=== PATIENT | male | born 1960 | race Caucasian/White ===

== ENCOUNTER 2019-07-26 08:15 | Emergency (ER) | payer MEDICARE ==
[~2019-07-26] VITALS: Ht 187.9 cm; Wt 73.5 kg
[~2019-07-26 08:15] MED LIST: ATARAX,VISTARIL50 MG PO; BENADRYL25 M1 PO; DAYPRO600 M1 PO; PEPCID20 MG PO; PREDNICOT20 MG PO; ROBAXIN750 MG PO; VICODIN 500 MG-1 TAB PO
== END 2019-07-26 09:24 | disposition home or self-care (01) ==
LOC: ED 08:15
DX: S92.354A Nondisplaced fracture of fifth metatarsal bone, right foot, initial encounter for closed fracture (principal); F17.200 Nicotine dependence, unspecified, uncomplicated; Z79.899 Other long term (current) drug therapy; X50.1XXA Overexertion from prolonged static or awkward postures, initial encounter; Y93.89 Activity, other specified; Y92.098 Other place in other non-institutional residence as the place of occurrence of the external cause; Y99.8 Other external cause status

== ENCOUNTER 2022-05-13 09:49 | Emergency (ER) | payer MEDICARE ==
[~2022-05-13] VITALS: Ht 187.9 cm; Wt 68.0 kg
[2022-05-13] MEDS ORDERED: TYLENOL325 M1 PO (10:34)
[2022-05-13] MEDS ORDERED: NAPROXEN250 MG PO (10:34)
== END 2022-05-13 10:42 | disposition home or self-care (01) ==
LOC: ED 09:49
DX: S62.91XA Unspecified fracture of right hand, initial encounter for closed fracture (principal); F17.200 Nicotine dependence, unspecified, uncomplicated; Z79.899 Other long term (current) drug therapy; Z98.890 Other specified postprocedural states; W17.89XA Other fall from one level to another, initial encounter; Y93.89 Activity, other specified; Y92.89 Other specified places as the place of occurrence of the external cause; Y99.8 Other external cause status

== ENCOUNTER → 2022-05-27 | Outpatient (CLI) | payer MEDICARE ==
[~2022-05-27] MED LIST changes: +NAPROXEN250 MG PO; +TYLENOL325 M1 PO
== END | disposition home or self-care (01) ==
LOC: ORTHO 00:37
PROVIDERS: ATTEND Orthopaedic Surgery
DX: S62.346D Nondisplaced fracture of base of fifth metacarpal bone, right hand, subsequent encounter for fracture with routine healing (principal); X58.XXXD Exposure to other specified factors, subsequent encounter

== ENCOUNTER 2023-11-30 16:29 | Emergency (ER) | payer MEDICARE ==
[~2023-11-30] VITALS: Ht 187.9 cm; Wt 69.4 kg
[2023-11-30] MEDS ORDERED: SODIUM CHLORIDE 0.9% 1,000 ML IV ONE (16:55)
[2023-11-30] MEDS ORDERED: Thiamine 200 MG/2 ML VIAL IV ONE (16:55)
[2023-11-30 17:09] LABS: BASO # 0.1 10*3/uL (0.0-0.1); EOS # 0.1 10*3/uL (0.0-0.4); EOS % 1.7 % (1.0-4.0); HEMATOCRIT 40.2 % (42.0-52.0); LYMPH # 1.8 10*3/uL (1.3-4.4); LYMPH % 22.7 % (27.0-41.0); MEAN CELL VOLUME 99.5 fl (80.0-94.0); MEAN CORPUSCULAR HGB 33.2 pg (27.0-31.0); MEAN CORPUSCULAR HGB CONC 33.3 g/dl (33.0-37.0); MEAN PLATELET VOLUME 10.1 fl (9.6-12.3); MONO # 0.6 10*3/uL (0.1-1.0); MONO % 7.8 % (3.0-9.0); NEUT # 5.1 10*3/uL (2.3-7.9); NEUT % 66.3 % (47.0-73.0); PLATELET COUNT AUTOMATED 171 10*3/uL (130-400); RED BLOOD COUNT 4.04 10*6/uL (4.50-5.90); RED CELL DISTRI WIDTH 14.5 % (0-14.5); WHITE BLOOD COUNT 7.7 10*3/uL (4.8-10.8)
[2023-11-30 17:20] LABS: ACT PARTIAL THROMBO TIME 36.3 SECONDS (20.0-32.1)
[2023-11-30 17:32] LABS: POTASSIUM 3.7 mmol/L (3.4-5.1); TOTAL PROTEIN 6.7 gm/dL (6.0-8.0)
[2023-11-30 17:58] LABS: BILIRUBIN 3+ (Negative); BLOOD Negative (Negative); CLARITY Cloudy (Clear); COLOR Orange (Yellow); GLUCOSE Trace (Negative); KETONE Negative (Negative); LEUKO ESTERASE 1+ (Negative); NITRITE Positive (Negative); PH 5.5 (4.5-8.0); SPECIFIC GRAVITY 1.025 (1.001-1.030)
[2023-11-30] MEDS ORDERED: Ceftriaxone Sodium 1 GM/10 ML SYR IV ONE (18:15)
== END 2023-11-30 23:10 | disposition short-term general hospital (02) ==
LOC: ED 16:29
PROVIDERS: Nurse Practitioner Family
DX: K80.50 Calculus of bile duct without cholangitis or cholecystitis without obstruction (principal); N39.0 Urinary tract infection, site not specified; E80.6 Other disorders of bilirubin metabolism; R74.01 Elevation of levels of liver transaminase levels; Z98.890 Other specified postprocedural states

== ENCOUNTER → 2023-12-11 | Outpatient (CLI) | payer MEDICARE ==
[2023-12-11 11:40] LABS: HEMATOCRIT 34.4 % (42.0-52.0); MEAN CELL VOLUME 102.1 fl (80.0-94.0); MEAN CORPUSCULAR HGB 32.6 pg (27.0-31.0); RED BLOOD COUNT 3.37 10*6/uL (4.50-5.90); RED CELL DISTRI WIDTH 13.4 % (0-14.5); WHITE BLOOD COUNT 8.1 10*3/uL (4.8-10.8)
[2023-12-11 12:11] LABS: ALKALINE PHOSPHATASE 235 U/L (46-116); BUN 13 mg/dl (9-23); CHLORIDE 103 mmol/L (98-107); CHOLESTEROL 188 mg/dL (<200); LDL CHOLESTEROL 128 mg/dL (9-159); LIPASE 89 U/L (12-53); POTASSIUM 3.7 mmol/L (3.4-5.1); SGPT/ALT 33 U/L (5-49); TOTAL PROTEIN 6.8 gm/dL (6.0-8.0); TRIGLYCERIDES 85 mg/dl (<150)
[2023-12-12 05:06] LABS: HBSAG Negative (Negative); HEP B CORE AB, IGM Negative (Negative); HEPATITIS C ANTIBODY Non Reactive (Non Reactive)
== END | disposition home or self-care (01) ==
LOC: LAB 11:14
PROVIDERS: ATTEND Family Medicine
DX: E78.00 Pure hypercholesterolemia, unspecified (principal)

== ENCOUNTER → 2024-04-28 | Outpatient (CLI) | payer MEDICARE ==
[2024-04-28 08:28] LABS: HEMATOCRIT 35.1 % (42.0-52.0); MEAN CELL VOLUME 99.7 fl (80.0-94.0); MEAN CORPUSCULAR HGB 32.7 pg (27.0-31.0); MEAN CORPUSCULAR HGB CONC 32.8 g/dl (33.0-37.0); MEAN PLATELET VOLUME 9.7 fl (9.6-12.3); RED BLOOD COUNT 3.52 10*6/uL (4.50-5.90); RED CELL DISTRI WIDTH 16.8 % (0-14.5); WHITE BLOOD COUNT 7.5 10*3/uL (4.8-10.8)
[2024-04-28 09:03] LABS: ALKALINE PHOSPHATASE 481 U/L (46-116); BUN 7 mg/dl (9-23); CHLORIDE 102 mmol/L (98-107); POTASSIUM 4.6 mmol/L (3.4-5.1); SGPT/ALT 57 U/L (5-49); TOTAL PROTEIN 6.4 gm/dL (6.0-8.0)
== END | disposition home or self-care (01) ==
LOC: LAB 07:51
PROVIDERS: ATTEND Family Medicine
DX: I10 Essential (primary) hypertension (principal); C25.9 Malignant neoplasm of pancreas, unspecified; D64.9 Anemia, unspecified; N40.0 Benign prostatic hyperplasia without lower urinary tract symptoms

== ENCOUNTER 2024-09-14 22:53 | Emergency (ER) | payer MEDICARE ==
[~2024-09-14] VITALS: Ht 187.9 cm; Wt 67.1 kg
[2024-09-14] MEDS ORDERED: Sulfamethoxazole/Trimethopri 1 TAB TAB PO ONE (23:10)
[2024-09-14] MEDS ORDERED: Ondansetron Hydrochloride 4 MG TAB SL ONE (23:10)
[2024-09-14] MEDS ORDERED: Acetaminophen/Hydrocodone 5 MG/325 MG TABLET PO ONE (23:15)
[2024-09-14] MEDS ORDERED: SEPTDS PO (23:17)
== END 2024-09-14 23:21 | disposition home or self-care (01) ==
LOC: ED 22:53
DX: S90.921A Unspecified superficial injury of right foot, initial encounter (principal); Z98.890 Other specified postprocedural states; X58.XXXA Exposure to other specified factors, initial encounter; Y93.89 Activity, other specified; Y92.009 Unspecified place in unspecified non-institutional (private) residence as the place of occurrence of the external cause; Y99.8 Other external cause status

== ENCOUNTER → 2024-10-27 | Outpatient (CLI) | payer MEDICARE ==
[~2024-10-27] MED LIST changes: +SEPTDS PO
[2024-10-27 12:11] LABS: ALKALINE PHOSPHATASE 181 U/L (46-116); BUN 15 mg/dl (9-23); CHLORIDE 102 mmol/L (98-107); SGPT/ALT 18 U/L (5-49); TOTAL PROTEIN 6.1 gm/dL (6.0-8.0)
== END | disposition home or self-care (01) ==
LOC: LAB 10:24
PROVIDERS: ATTEND Family Medicine
DX: E74.9 Disorder of carbohydrate metabolism, unspecified (principal); E55.9 Vitamin D deficiency, unspecified

== ENCOUNTER → 2024-10-28 | Outpatient (CLI) | payer MEDICARE ==
[2024-10-28 08:58] LABS: HEMATOCRIT 36.2 % (42.0-52.0); MEAN CELL VOLUME 109.7 fl (80.0-94.0); MEAN CORPUSCULAR HGB 36.7 pg (27.0-31.0); MEAN CORPUSCULAR HGB CONC 33.4 g/dl (33.0-37.0); MEAN PLATELET VOLUME 10.4 fl (9.6-12.3); RED BLOOD COUNT 3.3 10*6/uL (4.50-5.90); RED CELL DISTRI WIDTH 15.9 % (0-14.5); WHITE BLOOD COUNT 11.3 10*3/uL (4.8-10.8)
== END | disposition home or self-care (01) ==
LOC: LAB 00:48
PROVIDERS: ATTEND Family Medicine
DX: E55.9 Vitamin D deficiency, unspecified (principal); E74.9 Disorder of carbohydrate metabolism, unspecified; L03.116 Cellulitis of left lower limb; K86.2 Cyst of pancreas; Z79.899 Other long term (current) drug therapy

== ENCOUNTER 2024-11-19 05:37 | Emergency (ER) | payer MEDICARE ==
[~2024-11-19] VITALS: Ht 187.9 cm; Wt 67.1 kg
[2024-11-19] MEDS ORDERED: hydrOXYzine pamoate 25 MG CAP PO ONE (05:55)
[2024-11-19] MEDS ORDERED: FAMOTIDINE 20 MG TAB PO ONE (05:55)
[2024-11-19] MEDS ORDERED: Dexamethasone Sodium Phospha 20 MG/5 ML VIAL IM ONE (05:55)
[2024-11-19] MEDS ORDERED: PEPCID20 MG PO (05:57)
[2024-11-19] MEDS ORDERED: PREDNISONE20 M1 PO (05:57)
[2024-11-19] MEDS ORDERED: HYDROXYZINE HCL25 MG PO (05:57)
== END 2024-11-19 06:17 | disposition home or self-care (01) ==
LOC: ED 05:37
DX: L25.9 Unspecified contact dermatitis, unspecified cause (principal); Z79.2 Long term (current) use of antibiotics; Z98.890 Other specified postprocedural states

== ENCOUNTER → 2025-02-10 | Outpatient (CLI) | payer MEDICARE ==
[~2025-02-10] MED LIST changes: +HYDROXYZINE HCL25 MG PO; +PREDNISONE20 M1 PO
[2025-02-10 08:36] LABS: MEAN CELL VOLUME 102.9 fl (80.0-94.0); MEAN CORPUSCULAR HGB 32.8 pg (27.0-31.0); MEAN PLATELET VOLUME 10.0 fl (9.6-12.3); NUCLEATED RED BLOOD CELL 0.0 % (0.0-0.0); NUCLEATED RED BLOOD CELL 0.0 10*3/uL (0.0-0.0); PLATELET COUNT AUTOMATED 190.0 10*3/uL (130-400); RED CELL DISTRI WIDTH 14.0 % (0-14.5)
[2025-02-10 09:17] LABS: BUN 16 mg/dl (9-23); LDL CHOLESTEROL 57 mg/dL (9-159); SGPT/ALT 19 U/L (5-49)
[2025-02-10 09:19] LABS: VITAMIN D, 25-HYDROXY 33.8 ng/mL (30-100)
== END | disposition home or self-care (01) ==
LOC: LAB 07:51
PROVIDERS: ATTEND Family Medicine
DX: I10 Essential (primary) hypertension (principal); E78.00 Pure hypercholesterolemia, unspecified; E55.9 Vitamin D deficiency, unspecified; R53.83 Other fatigue; G47.00 Insomnia, unspecified; J18.9 Pneumonia, unspecified organism; D72.829 Elevated white blood cell count, unspecified